=== PATIENT | male | born 1950 | race Two or more races ===

== ENCOUNTER 2019-11-30 14:16 | Inpatient (IN) | payer MEDICARE, OTHER ==
[~2019-11-30] VITALS: Ht 180.3 cm; Wt 73.5 kg
--- NOTE | 2019-11-30 14:40 | NUR ---
RN NOTE: PT ABLE TO CONTRACT FOR SAFETY WHILE IN THE HOSPITAL. DENIES CURRENT SI. ENVIRONMENTAL ROOM SAFETY CHECK DONE.HIGH LEVEL OF OBSERVATION AND SURVEILLANCE IMPLEMENTED. PT PLACED CLOSE TO THE NURSES STATION. Q15MIN AND PRN CHECKS IMPLEMENTED.
--- NOTE | 2019-11-30 14:40 | NUR ---
TEARER NOTE: PATIENT IS A 69 YEAR OLD MALE BROUGHT IN TO THE HOSPITAL BY EMS FROM [facility]. ADMITTED ON A 5150 DTS. PT ADMITTED ON A 5150 HOLD. S/P SA. PT STABBED HIMSELF IN THE STOMACH MULTIPLE TIMES. PT STABBED HIMSELF IN THE STOMACH APPROXIMATELY 6 TIMES WITH A 4 INCH FIXED BLADE. PT STATED HE "COULDN'T TAKE IT ANYMORE" PT HAS BEEN SUFFERING FROM A "DEEP DEPRESSION" AND BECAME OVERWELMED AND "COULDN'T TAKE IT ANYMORE" AND STABBED HIMSELF IN THE STOMACH. UPON FACE TO FACE ASSESSMENT PT REPORTS SUICIDAL INTENT BUT DENIES CURRENT SI. PT'S AFFECT IS DEPRESSED, FLAT AND ANXIOUS. PT JULIO CESAR HI/AH/VH AT PRESENT TIME. PT IS SITTING IN A WHEELCHAIR D/T "FEELING WEAK" AFTER STAY IN THE HOSPITAL, BUT IS ABLE TO AMBULATE AND USE THE BATHROOM. PT'S SPEECH IS FLAT, MONOTONED AND DELAYED. A+OX3, ABLE TO MAKE NEEDS KNOWN. PT IS DISHEVELED AND UNKEPT. PT REPORTS H/O 1 PREV SA IN 2013 VIA CUTTING R WRIST. PT HAS BEEN ON PAXIL FOR MANY YEARS. PAXIL INCREASED FROM 37.5 TO 50MG 1 MONTH AGO D/T WORSENING DEPRESSION WITHOUT RELIEF. PT STATES "THE [place]" THE TRIGGER AND HIS USUAL COPING SKILLS STOPPED WORKING. PT HAS H/O HTN. VSS: 134/80, 98.2,20,81,97%RA. 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 NKA. PT HAS NO VALUABLES. NO ADVANCED DIRECTIVE. PT IS A FULL CODE. PT GIVEN PATIENT'S RIGHTS HANDBOOK AND GUIDE TO PRESCRIPTIONS. PT ID PLACED ON PT. PT ORIENTED TO THE UNIT. PT VERBALIZED UNDERSTADING
[2019-11-30] MEDS ORDERED: PARO25TA15 PO (15:25)
[2019-11-30] MEDS ORDERED: BENA20TA9 PO (15:25)
[2019-11-30] MEDS ORDERED: METO50TA16 PO (15:25)
[2019-11-30 16:00] VITALS: BP 134/80
[2019-11-30] MEDS ORDERED: ACETAMINOPHEN 325 MG TABLET PO PRN (16:00)
[2019-11-30] MEDS ORDERED: MAGNESIUM HYDROXIDE 30 ML UDC PO PRN (16:00)
[2019-11-30] MEDS ORDERED: MAG HYDROX/AL HYDROX/SIMETH 30 ML UDC PO PRN (16:00)
[2019-11-30] MEDS ORDERED: BLOOD SUGAR DIAGNOSTIC 1 EACH STRIP IN ONE (16:00)
--- NOTE | 2019-11-30 16:17 | NUR ---
GPS/RN DR CERNA NOTIFIED VIA [facility] EXCHANGE OF ADMISSION. MEDS ARE READY TO RECONCILE
[2019-11-30 17:53] VITALS: BP 134/80
[2019-11-30 20:00] VITALS: BP 129/77
[2019-11-30 20:39] VITALS: BP 129/77
[2019-11-30] MEDS: TEMAZEPAM 7.5 MG CAPSULE PO PRN (21:12)
--- NOTE | 2019-11-30 21:14 | NUR ---
GPS RN NOTE PATIENT VERBALIZED THAT HE IS UNABLE TO SLEEP, REQUESTED TO GET SLEEPING PILL, PRN RESTORIL 7.5 MG PO GIVEN. WILL REASSESS FOR EFFECTIVENESS.
--- NOTE | 2019-12-01 01:52 | NUR ---
GPS RN NOTE PATIENT IS SLEEPING AT THIS TIME. NO CHANGES NOTED. WILL CONTINUE TO MONITOR Q15MIN FOR SAFETY & COMFORT.
[2019-12-01 07:21] LABS: ALBUMIN 3.4 g/dL (3.4-5.0); BILIRUBIN,TOTAL 0.5 mg/dL (0.2-1.0); CREATININE 0.9 mg/dL (0.6-1.3); POTASSIUM 4.2 mmol/L (3.5-5.1); TOTAL PROTEIN, SERUM 7.3 g/dL (6.4-8.2)
[2019-12-01 07:41] LABS: CHOLESTEROL 123 mg/dL (<200); HDL CHOLESTEROL 42 mg/dL (40-60); LDL 74 mg/dL (0-99); TRIGLYCERIDES 77 mg/dL (30-150)
[2019-12-01 08:00] VITALS: BP 131/79
[2019-12-01] MEDS: METOPROLOL TARTRATE 50 MG TABLET PO SCH ×2 (08:51→16:02)
[2019-12-01] MEDS: BENAZEPRIL HCL 20 MG TABLET PO SCH ×2 (08:51→16:02)
--- NOTE | 2019-12-01 09:54 | NUR ---
Family Contact: SW called the pts , Joselyn ([phone]), and was unable to make contact due to a busy dial tone. ELIJAH will attempt again later.
--- NOTE | 2019-12-01 12:54 | NUR ---
Initial Discharge Plan: Pt currently resides at his home with his located at [address] [place] [address]; ([phone]). Per pt, he would like to return to his home. SW will work with the pt and the MD regarding appropriate discharge planning. SW will form a safe and proper plan.
[2019-12-01 16:00] VITALS: BP 133/77
[2019-12-01] MEDS: PAROXETINE HCL 20 MG TABLET PO SCH (16:56)
[2019-12-01 20:00] VITALS: BP 155/83
[2019-12-01 20:25] VITALS: BP 155/83
[2019-12-01] MEDS: ARIPIPRAZOLE 5 MG TABLET PO SCH (21:13)
[2019-12-01] MEDS: TEMAZEPAM 7.5 MG CAPSULE PO PRN (21:13)
[2019-12-02 08:00] VITALS: BP 123/79
[2019-12-02] MEDS: PAROXETINE HCL 20 MG TABLET PO SCH (08:09)
[2019-12-02] MEDS: BENAZEPRIL HCL 20 MG TABLET PO SCH ×2 (08:10→16:07)
[2019-12-02] MEDS: METOPROLOL TARTRATE 50 MG TABLET PO SCH ×2 (08:11→16:07)
--- NOTE | 2019-12-02 10:39 | NUR ---
WOUND CARE CONSULT: PT PRESENTS WITH CLOSED LACERATIONS WITH DALJIT AND SOME BRUISING /DISCOLORATION AROUND THEM. NO DRAINAGE NOTED. DEFER TO MD. WILL SEE PRN. CURRENT SALINA SCORE IS 19.
[2019-12-02 16:00] VITALS: BP 139/81
[2019-12-02] MEDS: LORAZEPAM 0.5 MG TABLET PO PRN (18:06)
--- NOTE | 2019-12-02 18:06 | NUR ---
PATIENT CAME TO THE NURSES STATION WITH ANXIETY STATING THAT HE FEELS LIKE DOING SOMETHING TO HIMSELF. I REDIRECTED THE PATIENT TO HIS ROOM AND ORIENTED HIM BACK TO REALITY AND WENT OVER SOME TACTICS ON HOW TO CONTROL HIS URGE OF WANTING TO HURT HIMSELF. ATIVAN 1MG PO GIVEN FOR HIS ANXIETY/RESTLESSNESS. FAMILY IS AT BEDSIDE. CN AWARE. WILL CONTINUE TO MONITOR PATIENT FOR SAFETY AND BEHAVIOR. Addendum: 12/02/19 at 1858 by ROBERTH MCGRATH RN WILL INFORM FOLLOWING RN TO ASSESS PRN
[2019-12-02 20:20] VITALS: BP 118/67
--- NOTE | 2019-12-02 21:00 | NUR ---
RN NOTES: PT. RESTING HIS ROOM , DENIES SI HI , ALL NEEDS ATTENDED AND ANTICIPATED, WILL CONTINUITY WITH CARE.
[2019-12-02] MEDS: ARIPIPRAZOLE 5 MG TABLET PO SCH (21:06)
[2019-12-02] MEDS: TEMAZEPAM 7.5 MG CAPSULE PO PRN (22:59)
--- NOTE | 2019-12-03 06:45 | NUR ---
RN NOTES; PT. RESTING COMFORTABLY AND SLEPT WELL , NO ACUTE DISTRESS NOTED , DENIES SI / HI DURING IN SHIFT , ENDORSE TO ON COMING NURSE FOR CONTINUITY OF CARE ,
--- NOTE | 2019-12-03 07:07 | NUR ---
RN NOTES; PT. DIDNOT EXPRESS ANY FEELING OF SI /HI IN DURING SHIFT , PER PT. I AM FEELING FINE , WILL CONTINUITY WITH CARE.
[2019-12-03 08:00] VITALS: BP 122/70
[2019-12-03] MEDS: METOPROLOL TARTRATE 50 MG TABLET PO SCH ×2 (08:39→17:00)
[2019-12-03] MEDS: BENAZEPRIL HCL 20 MG TABLET PO SCH ×2 (08:40→17:00)
[2019-12-03] MEDS: PAROXETINE HCL 20 MG TABLET PO SCH (08:42)
[2019-12-03 16:00] VITALS: BP 108/67
[2019-12-03] MEDS: LORAZEPAM 0.5 MG TABLET PO PRN (17:01)
--- NOTE | 2019-12-03 17:03 | NUR ---
RN NOTE- PT W ANXIETY, RESTLESSNESS. REQUESTING RX. ATIVAN 1 MG GIVEN AT THIS TIME.
[2019-12-03 20:09] VITALS: BP 124/138
[2019-12-03] MEDS: ARIPIPRAZOLE 5 MG TABLET PO SCH (21:14)
[2019-12-03] MEDS: TEMAZEPAM 7.5 MG CAPSULE PO PRN (21:21)
--- NOTE | 2019-12-03 21:23 | NUR ---
GPS RN NOTES: PT C/O UNABLE TO SLEEP. PT STATED, "CAN I HAVE SOMETHING SO I CAN SLEEP?" OFFERED RESTORIL 7.5MG PO PRN ORDERED. PT AGREED AND TOLERATED MEDICATION WELL. CONTINUE TO MONITOR.
[2019-12-04 08:00] VITALS: BP 148/71
[2019-12-04] MEDS: BENAZEPRIL HCL 20 MG TABLET PO SCH ×2 (08:03→16:12)
[2019-12-04] MEDS: PAROXETINE HCL 20 MG TABLET PO SCH (08:03)
[2019-12-04] MEDS: METOPROLOL TARTRATE 50 MG TABLET PO SCH ×2 (08:03→16:12)
[2019-12-04] MEDS: LORAZEPAM 0.5 MG TABLET PO PRN (11:02)
--- NOTE | 2019-12-04 11:02 | NUR ---
RN NOTE- PT W ANXIETY AND RESTLESSNESS. REQUESTING PRNr
--- NOTE | 2019-12-04 11:03 | NUR ---
RN NOTE- PT W ANXIETY AND RESTLESSNESS. REQUESTING PRN RX. ATIVAN 1 MG GIVEN. MONITORING PT.
[2019-12-04 16:00] VITALS: BP 113/59
[2019-12-04 20:41] VITALS: BP 123/61
[2019-12-04] MEDS: ARIPIPRAZOLE 5 MG TABLET PO SCH (21:38)
[2019-12-04] MEDS: TEMAZEPAM 7.5 MG CAPSULE PO PRN (22:03)
[2019-12-05 08:00] VITALS: BP 155/81
[2019-12-05] MEDS: BENAZEPRIL HCL 20 MG TABLET PO SCH ×2 (08:03→16:24)
[2019-12-05] MEDS: METOPROLOL TARTRATE 50 MG TABLET PO SCH ×2 (08:03→16:24)
[2019-12-05] MEDS: PAROXETINE HCL 20 MG TABLET PO SCH (08:04)
--- NOTE | 2019-12-05 09:40 | NUR ---
Family Contact: SW called the pts , Joselyn ([phone]), and it was discussed that the pt will be returning to his home once there is a discharge date.
--- NOTE | 2019-12-05 14:45 | NUR ---
GPS RN NOTES RECEIVED REPORT FROM ROGER FRASER AMITA
[2019-12-05 16:00] VITALS: BP 141/73
[2019-12-05] MEDS: LORAZEPAM 0.5 MG TABLET PO PRN (16:24)
[2019-12-05 20:38] VITALS: BP 112/61
[2019-12-05] MEDS: TEMAZEPAM 7.5 MG CAPSULE PO PRN (21:35)
[2019-12-05] MEDS: ARIPIPRAZOLE 5 MG TABLET PO SCH (21:35)
[2019-12-06 08:00] VITALS: BP 132/71
[2019-12-06] MEDS: METOPROLOL TARTRATE 50 MG TABLET PO SCH ×2 (09:28→17:00)
[2019-12-06] MEDS: PAROXETINE HCL 20 MG TABLET PO SCH (09:29)
[2019-12-06] MEDS: BENAZEPRIL HCL 20 MG TABLET PO SCH ×2 (09:30→17:00)
--- NOTE | 2019-12-06 13:43 | NUR ---
Probable Cause (PC) Hearing: ELIJAH called the pts , Joselyn ([phone]), and informed her that the pt is having a hearing today and explained what the hearing entails. ELIJAH then explained to her that the pt will be discharged home on if the pt is not released by the court today.
--- NOTE | 2019-12-06 14:31 | NUR ---
GROUP NOTE: SW encouraged pt to participate in group on this present day discussing "positive coping skills." Pt refused and stated he wanted to stay in his room. SW provided intervention and discussed his depression and isolation, SW discussed the importance to come out of his room and participate in group milieu as part of his treatment plan. Pt closed his eyes and did not engage in conversation with SW.
--- NOTE | 2019-12-06 15:59 | NUR ---
Family Contact: Pts Audra hernandez ([phone]), called the SW and stated that there are concerns about the pt returning to their home after attempting suicide two times. SW stated that the pt can be placed in a SNF and that the SW would talk to the pts MD about it after the pts family speak to the pt about it during their visit later this evening. Addendum: 12/07/19 at 1109 by SHAMIR NAVA Amanda
[2019-12-06 16:00] VITALS: BP 136/78
[2019-12-06 20:08] VITALS: BP 154/87
[2019-12-06] MEDS: ARIPIPRAZOLE 5 MG TABLET PO SCH (20:56)
[2019-12-06] MEDS: TEMAZEPAM 7.5 MG CAPSULE PO PRN (21:01)
[2019-12-07 07:00] LABS: BASOPHILS # (AUTO) 0.1 /CMM (0.0-0.2); BASOPHILS % (AUTO) 0.5 % (0.0-2.0); EOSINOPHILS % (AUTO) 2.4 % (0.0-6.0); HEMATOCRIT 42 % (39-51); HEMOGLOBIN 14.4 g/dL (13.5-17.5); LYMPHOCYTES # (AUTO) 1.8 /CMM (0.8-4.8); LYMPHOCYTES % (AUTO) 18.9 % (20.0-44.0); MEAN CORPUSCULAR HGB CONC 34 g/dl (31.0-36.0); MEAN CORPUSCULAR VOLUME 87 fL (80-96); MONOCYTES # (AUTO) 0.9 /CMM (0.1-1.30); MONOCYTES % (AUTO) 9.7 % (2.0-12.0); NEUTROPHILS # (AUTO) 6.6 /CMM (1.8-8.9); NEUTROPHILS % (AUTO) 68.5 % (43.0-81.0); PLATELET COUNT (AUTO) 260 /CMM (150-450); RED BLOOD CELL COUNT(AUTO) 4.87 MIL/uL (4.5-6.0); WHITE BLOOD COUNT (AUTO) 9.7 K/uL (4.3-11.0)
[2019-12-07 07:10] LABS: CALCIUM, SERUM 9.2 mg/dL (8.5-10.1); CREATININE 0.9 mg/dL (0.6-1.3); MAGNESIUM 2.1 mg/dL (1.8-2.4); PHOSPHORUS 3.6 mg/dL (2.5-4.9); POTASSIUM 4.7 mmol/L (3.5-5.1)
[2019-12-07 08:00] VITALS: BP 142/78
[2019-12-07] MEDS: PAROXETINE HCL 20 MG TABLET PO SCH (08:43)
[2019-12-07] MEDS: BENAZEPRIL HCL 20 MG TABLET PO SCH ×2 (08:44→16:25)
[2019-12-07] MEDS: METOPROLOL TARTRATE 50 MG TABLET PO SCH ×2 (08:44→16:25)
--- NOTE | 2019-12-07 11:02 | NUR ---
Individual Intervention with the pt: SW spoke to the pt and informed him that his family is concerned about him being discharged home because he has made two suicide attempts. SW stated that the pts family would feel more comfortable with the pt being placed in a facility instead of being home. Pt stated that he did not want to be placed in a facility and wants to be able to return home.
--- NOTE | 2019-12-07 11:29 | NUR ---
Family Contact: SW called the pts Amanda hernandez ([phone]), and informed her that the SW had a conversation with the pt about his discharge to a SNF and how the pt denied the facility and stated that he wanted to be discharged home. Pts niece stated that they had spoken to the pt about it the previous night and the pt seemed undetermined. SW stated that she will send out SNF referrals just in case and that the SW will keep having conversations with the pt regarding his safety and the nieces stated that she would do the same.
--- NOTE | 2019-12-07 11:30 | NUR ---
SNF Referral: SW faxed a referral to [facility] with attn to Cat/Steve/Modesta to the fax number: [phone].
--- NOTE | 2019-12-07 14:41 | NUR ---
Group Note: SW encouraged pt to participate in group on 12/07/19 discussing discharge planning but the pt stated that he wanted to remain in his room. Pt stated that he understands that the recommendation is that the pt be discharged to a penitentiary facility for safety purposes and the pt stated that he wants to be discharged home. SW asked about what his reasoning is and he stated that he wants to be in a familiar environment with his family and he believes that if he goes to a facility that he is going to feel more depressed and alone.
[2019-12-07 16:00] VITALS: BP 135/72
[2019-12-07 19:37] VITALS: BP 135/68
[2019-12-07] MEDS: ARIPIPRAZOLE 5 MG TABLET PO SCH (22:05)
[2019-12-07] MEDS: TEMAZEPAM 7.5 MG CAPSULE PO PRN (22:06)
[2019-12-08 08:00] VITALS: BP 119/94
[2019-12-08] MEDS: BENAZEPRIL HCL 20 MG TABLET PO SCH ×2 (08:00→16:30)
[2019-12-08] MEDS: PAROXETINE HCL 20 MG TABLET PO SCH (08:00)
[2019-12-08] MEDS: METOPROLOL TARTRATE 50 MG TABLET PO SCH ×2 (08:00→16:29)
--- NOTE | 2019-12-08 10:00 | NUR ---
Family Contact: Pts Amanda hernandez ([phone]), called the SW and stated that she understands that the pt is refusing to be discharged to a facility. She stated that the family needs DPOA or conservatorship over him so that he can be in a facility because she does not feel as if the pt will be safe at home. Pts mary stated that she will arrive between 10-11am to pick the pt up.
[2019-12-08 16:00] VITALS: BP 142/78
[2019-12-08 20:00] VITALS: BP 129/72
[2019-12-08] MEDS: TEMAZEPAM 7.5 MG CAPSULE PO PRN (21:37)
[2019-12-08] MEDS: ARIPIPRAZOLE 5 MG TABLET PO SCH (21:37)
[2019-12-08 22:09] VITALS: BP 129/72
[2019-12-09 08:00] VITALS: BP 123/68
[2019-12-09 08:02] VITALS: BP 123/68
[2019-12-09] MEDS: BENAZEPRIL HCL 20 MG TABLET PO SCH (08:02)
[2019-12-09] MEDS: METOPROLOL TARTRATE 50 MG TABLET PO SCH (08:02)
[2019-12-09] MEDS: PAROXETINE HCL 20 MG TABLET PO SCH (08:04)
[2019-12-09] MEDS: LORAZEPAM 0.5 MG TABLET PO PRN (10:45)
--- NOTE | 2019-12-09 10:47 | NUR ---
RN NOTE- PT ANXIOUS ABOUT DC HOME. ATIVAN 1 MG GIVEN AT THIS TIME.
--- NOTE | 2019-12-09 10:59 | NUR ---
ENVIRONMENTAL INSPECTOR NOTE: PATIENT IS A 69 YEAR OLD MALE DISCHARGED HOME TO [address] [facility] [address]. PATIENT IS IN STABLE CONDITION. VSS. NO ACUTE DISTRESS NOTED. NO COMPLAINTS. COMPLIANT WITH MEDICATION MANAGEMENT. COOPERATIVE WITH PLAN OF CARE. PSYCHIATRIC TREATMENT PLANS MET. MEDICAL TREATMENT PLANS DEFERRED FOR CONTINUAL MONITORING. DENIES SI/HI VAH AT THE TIME OF DISCHARGE. SKIN CHECK DONE WITH WOUND PICTURES IN CHART. EDUCATED PATIENT ABOUT AFTERCARE WITH COPY PROVIDED. RETURNED PERSONAL BELONGINGS TO PATIENT. MEDICATIONS RECONCILED WITH ALONG WITH PSYCHIATRIC DISCHARGE ORDERS. DISCHARGE PAPERWORK SIGNED. FOR FOLLOW UP WITH PSYCHIATRIST DR DE ANDA [address] [place] [id number] AND INSTALLATION SERVICE REPRESENTATIVE DR DOTSON [address] [place] [address] IN 1 WEEK. PATIENT LEFT THE [facility] AT 1055 VIA PRIVATE TRANSPORT. Addendum: 12/09/19 at 1137 by ROGER WEST RN MED RECON WITH DR. BAPTISTE AND CHIN.
--- NOTE | 2019-12-09 13:17 | NUR ---
Discharge Note: Pt was discharged to his home located at [facility] [place] [address]; ([phone]). Pt was picked up by his niece, Amanda ([phone]), at 10-11AM. Upon discharge, the pt appeared to be in a euthymic mood and presented with calm affect. Pt denied both suicidal and homicidal ideation as well as auditory and visual hallucinations. Pt stated that he was content about returning to his home where he is comfortable. Pt will be under the care of his psychiatrist, Dr. Benito, located at [address] [facility] [address], [place] [address]; ; and a fax of records was sent to: [phone]. Pt has an appointment on 12/19/19 at 1pm. Pt will continue to be under the care of his java systems analyst, Dr. Aramb[place], [place] [address] [place] [address]; .
== END 2019-12-09 10:55 | disposition home or self-care (01) | DRG 885 ==
LOC: GPS 14:27
PROVIDERS: ADMIT Psychiatry & Neurology Psychiatry; ATTEND Family Medicine
DX: F33.2 Major depressive disorder, recurrent severe without psychotic features (principal); R45.851 Suicidal ideations; I10 Essential (primary) hypertension; Z91.5 Personal history of self-harm; X78.1XXD Intentional self-harm by knife, subsequent encounter; S31.119D Laceration without foreign body of abdominal wall, unspecified quadrant without penetration into peritoneal cavity, subsequent encounter
CPT/HCPCS: 36415; 80048-TC; 80053-TC; 80061-TC; 82962-TC; 83735-TC; 84100-TC; 85025-TC; 87081-TC; 97116-TC; 97530-TC